=== PATIENT | male | born 1950 | race Caucasian/White ===

== ENCOUNTER 2017-12-12 07:43 | Emergency (ER) | payer MEDICARE, OTHER ==
[~2017-12-12] VITALS: Ht 182.9 cm; Wt 111.8 kg
[~2017-12-12 07:43] MED LIST: ATOR40TA PO; FENO135C2 PO; HYDR-3564 PO; NIFE60TA69 PO; SOLI5TAB2 PO; ZOLP12.543 PO
[2017-12-12] MEDS ORDERED: diltiazem 5mg/ml 5ml inj. IV ONE (08:10)
[2017-12-12 08:15] LABS: BASOPHILS # (AUTO) 0.1 X10'3 (0-0.2); BASOPHILS % (AUTO) 0.6 % (0-1); EOSINOPHILS # (AUTO) 0.1 X10'3 (0-0.9); EOSINOPHILS % (AUTO) 0.9 % (0-6); HEMATOCRIT 43.4 % (42.0-52.0); HEMOGLOBIN 14.5 g/dl (14.0-17.9); LYMPHOCYTES # (AUTO) 2.7 X10'3 (1.1-4.8); LYMPHOCYTES % (AUTO) 27.1 % (21-51); MEAN CORPUSCULAR HEMOGLOBIN 30.2 PG (27.0-31.0); MEAN CORPUSCULAR HGB CONC 33.3 % (33.0-36.5); MEAN CORPUSCULAR VOLUME 90.6 FL (78-98); MEAN PLATELET VOLUME 6.9 FL (7.4-10.4); MONOCYTES # (AUTO) 0.6 X10'3 (0-0.9); MONOCYTES % (AUTO) 5.7 % (2-12); NEUTROPHILS # (AUTO) 6.5 X10'3 (1.8-7.7); NEUTROPHILS % (AUTO) 65.7 % (42-75); PLATELET COUNT 319 X10'3 (140-440); RED BLOOD COUNT 4.79 X10'6 (4.70-6.10); RED CELL DISTRIBUTION WIDTH 14.4 % (11.5-14.5); WHITE BLOOD COUNT 9.9 X10'3 (4.5-11.0)
[2017-12-12 08:23] LABS: INR 1.1 INR; PARTIAL THROMBOPLASTIN TIME 28 SECONDS (22-32); PROTHROMBIN TIME 11.7 SECONDS (9.0-12.0)
[2017-12-12 08:30] LABS: ALANINE AMINOTRANSFERASE 36 U/L (12-78); ALBUMIN 4.2 G/DL (3.4-5.0); ALBUMIN/GLOBULIN RATIO 1.4 (1.1-1.5); ALKALINE PHOSPHATASE 23 IU/L (46-116); ANION GAP 8 (8-16); ASPARTATE AMINO TRANSFERASE 40 U/L (10-37); BILIRUBIN,TOTAL 0.8 MG/DL (0.1-1.0); BLOOD UREA NITROGEN 19 MG/DL (7-18); BUN/CREATININE RATIO 16.5 (5.4-32.0); CALCIUM 9.6 MG/DL (8.5-10.1); CHLORIDE 107 MMOL/L (99-107); CREATININE 1.15 MG/DL (0.60-1.10); GLUCOSE 112 MG/DL (70-104); POTASSIUM 3.8 MMOL/L (3.5-5.1); SODIUM 142 MMOL/L (135-145); TOTAL PROTEIN 7.3 G/DL (6.4-8.2); eGFR 63 ML/MIN
[2017-12-12] MEDS ORDERED: furosemide 10 MG/1 ML 10ml inj IV ONE (09:20)
[2017-12-12 11:53] VITALS: BP 132/88
== END 2017-12-12 11:56 | disposition home or self-care (01) ==
LOC: ER 07:44
DX: I48.91 Unspecified atrial fibrillation (principal); I10 Essential (primary) hypertension; Z88.5 Allergy status to narcotic agent; Z79.899 Other long term (current) drug therapy
CPT/HCPCS: 36415; 71045; 80053; 83880; 84484; 85025; 85610; 85730; 93005; 96374; 96375; 99285; J1940; J3490

== ENCOUNTER 2020-10-29 05:58 | Inpatient (IN) | payer MEDICARE, MEDICAID, OTHER ==
[2020-10-22 11:34] LABS: PRE OP INR 1.1 INR; PRE OP PROTIME 11.6 SECONDS (9.0-12.0)
[2020-10-22 11:46] LABS: ALBUMIN 3.9 G/DL (3.4-5.0); ALBUMIN/GLOBULIN RATIO 1.3 (1.1-1.5); ALKALINE PHOSPHATASE 26 IU/L (46-116); BLOOD UREA NITROGEN 15 MG/DL (7-18); CALCIUM 9.6 MG/DL (8.5-10.1); CHLORIDE 108 MMOL/L (99-107); CREATININE 1.15 MG/DL (0.60-1.10); PRE OP ALT 24 U/L (30-65); PRE OP ANION GAP 7 (8-16); PRE OP AST 18 U/L (10-37); PRE OP BILIRUB, TOTAL 0.4 MG/DL (0.0-1.0); PRE OP GLUCOSE 83 MG/DL (70-104); PRE OP POTASSIUM 4.1 MMOL/L (3.4-5.1); PRE OP SODIUM 145 MMOL/L (135-145); TOTAL CARBON DIOXIDE 29.9 MMOL/L (24-32); TOTAL PROTEIN 6.9 G/DL (6.4-8.2); eGFR 63 ML/MIN
[2020-10-22 11:49] LABS: BASOPHILS # (AUTO) 0.1 X10'3 (0-0.2); BASOPHILS % (AUTO) 1.1 % (0-1); EOSINOPHILS # (AUTO) 0.3 X10'3 (0-0.9); EOSINOPHILS % (AUTO) 2.7 % (0-6); LYMPHOCYTES # (AUTO) 5.2 X10'3 (1.1-4.8); LYMPHOCYTES % (AUTO) 49.9 % (21-51); MEAN CORPUSCULAR HEMOGLOBIN 30.8 PG (27.0-31.0); MEAN CORPUSCULAR HGB CONC 33.3 g/dL (33.0-36.5); MEAN CORPUSCULAR VOLUME 92.5 FL (78-98); MEAN PLATELET VOLUME 6.5 FL (7.4-10.4); MONOCYTES # (AUTO) 0.9 X10'3 (0-0.9); MONOCYTES % (AUTO) 8.6 % (2-12); NEUTROPHILS % (AUTO) 37.7 % (42-75); PRE OP HEMATOCRIT 41.5 % (42.0-52.0); PRE OP HEMOGLOBIN 13.8 g/dL (14.0-17.9); PRE OP PLATELET COUNT 336 X10'3 (140-440); RED BLOOD COUNT 4.48 X10'6 (4.70-6.10); RED CELL DISTRIBUTION WIDTH 13.8 % (11.5-14.5)
[~2020-10-29] VITALS: Ht 182.9 cm; Wt 104.3 kg
[2020-10-29] VITALS (18 sets, daily range): BP systolic 85–128; BP diastolic 47–93
[~2020-10-29 05:58] MED LIST changes: +ACET-1059 PO; +APIX5TAB3 PO; +DILT120C94 PO; +FLO0.4C PO; -HYDR-3564 PO; +LISI-604 PO; -NIFE60TA69 PO; -SOLI5TAB2 PO; -ZOLP12.543 PO; +ceFAZolin 2gm in dextrose, iso 50 ML IV ONE; +famotidine 20mg tablet PO ONE; +ringers solution, lacted 1,000 ML IV SCH; +tranexamic acid 1gm/0.7% sal. 100 ML IV ONE; +vancomycin 1,500 MG in NS 300ml IV soln IV ONE
[2020-10-29] MEDS ORDERED: LIDOcaine 1% (10mg/ml) 2ml vial ONE (06:13)
[2020-10-29] MEDS ORDERED: ROPIVAcaine 0.5% (5mg/ml) 30ml vial ONE ×2 (06:48→08:13)
[2020-10-29] MEDS ORDERED: midazolam 2 mg/2 ml injection ONE (08:10)
[2020-10-29] MEDS ORDERED: fentaNYL/PF 50MCG/1 ML 2ML syringe ONE (08:10)
[2020-10-29] MEDS ORDERED: sevoflurane 250ml liquid IH ONE (08:22)
[2020-10-29] MEDS ORDERED: dexamethasone sod phosphate 4mg/ml inj. ONE (09:05)
[2020-10-29] MEDS ORDERED: propofol inj 20 ML IV ONE (09:05)
[2020-10-29] MEDS ORDERED: neostigmine methylsulfate 1 MG/ML 10ml vial ONE (09:05)
[2020-10-29] MEDS ORDERED: ondansetron/PF 4mg/2ml inj ONE (09:05)
[2020-10-29] MEDS ORDERED: rocuronium 10mg/ml inj IV ONE (09:05)
[2020-10-29] MEDS ORDERED: LIDOcaine 1%/PF 5ML 10 MG/ML VIAL ONE (09:05)
[2020-10-29] MEDS ORDERED: glycopyrrolate 0.2mg/ml inj ONE (09:05)
[2020-10-29] MEDS ORDERED: ROPIVAcaine 0.2% (10 MG/5 ML) BOLUS INJECTION INTERSCALE PRN (09:15)
[2020-10-29] MEDS ORDERED: morphine 2 MG/ML inj. syringe IV PRN (09:15)
[2020-10-29] MEDS ORDERED: ROPIVAcaine 0.2%/PF PUMP/bolus 550 ML ADDCANAL SCH (09:15)
[2020-10-29] MEDS ORDERED: ondansetron/PF 4mg/2ml inj IV PRN ×2 (09:15→10:20)
[2020-10-29] MEDS ORDERED: ringers solution, lacted 1,000 ML IV SCH (09:15)
[2020-10-29] MEDS ORDERED: HYDROmorphone/PF 0.2 MG/ML SYRINGE IV PRN ×2 (09:15)
[2020-10-29] MEDS ORDERED: ROPIVAcaine 0.2%/PF PUMP/bolus 550 ML INTERSCALE SCH (09:16)
--- NOTE | 2020-10-29 10:18 | NUR ---
Received from OR via , accompanied by Anesthesiologist DR YARBROUGH and report given by Anesthesiolgist. AWAKENS TO VOICE. VITALS STABLE. DRESSING DI. LEONEL PAIN. LUE IN SLING. FINGERS WARM AND PINK.
[2020-10-29] MEDS ORDERED: ACETAMINOPHEN WITH CODEINE PO PRN (10:20)
[2020-10-29] MEDS ORDERED: bisacodyl 10mg suppository rectal RC PRN (10:20)
[2020-10-29] MEDS ORDERED: HYDROmorphone 1 mg/ml syringe IV PRN (10:20)
[2020-10-29] MEDS ORDERED: magnesium hydroxide 30ml (MOM) UD suspension PO PRN (10:20)
[2020-10-29] MEDS ORDERED: acetaminophen 325mg tablet PO PRN (10:20)
[2020-10-29] MEDS ORDERED: diphenhydrAMINE 25mg capsule PO PRN ×2 (10:20)
[2020-10-29] MEDS ORDERED: oxyCODONE IR 5mg (immed. release) tablet PO PRN (10:20)
[2020-10-29] MEDS ORDERED: HYDROmorphone inj. 0.5 MG/0.5 ML DISP.SYRIN IV PRN (10:20)
[2020-10-29] MEDS ORDERED: metoprolol tartrate 1mg/ml inj IV ONE (10:27)
[2020-10-29] MEDS ORDERED: esmolol inj. 10 ML IV ONE (10:27)
--- NOTE | 2020-10-29 11:28 | NUR ---
Report called to receiving nurse. Transferred via BED Belongings . Special Issues communicated to receiving nurse. AWAKE AND ORIENTED. VITALS STABLE. DRESSING DI. STATES ONLY MIN DISCOMFORT. TO ORTHO RM 4024A AT THIS TIME.
[2020-10-29] MEDS ORDERED: tranexamic acid 1gm/0.7% sal. 100 ML IV ONE (14:00)
[2020-10-29] MEDS: acetaminophen 325mg tablet PO SCH ×2 (14:00→20:14)
[2020-10-29] MEDS: oxyCODONE IR 5mg (immed. release) tablet PO PRN (14:22)
[2020-10-29] MEDS: ceFAZolin/D5W- 1GM premix 50 ML IV SCH (15:49)
[2020-10-29] MEDS: potassium cl 20mEq in 1/2 NS 1,000 ML IV SCH ×2 (18:20→20:13)
--- NOTE | 2020-10-29 18:25 | NUR ---
Problems reprioritized. Patient report given, questions answered & plan of care reviewed with Oneyda.
--- NOTE | 2020-10-29 18:26 | NUR ---
RECEIVED REPORT FROM MARKELL CISNEROS AND ASSUMED PATIENT CARE
[2020-10-29] MEDS ORDERED: vancomycin/NS 1 GM ADD-VANTAGE 250 ML IV SCH (20:00)
[2020-10-29] MEDS: tamsulosin 0.4mg capsule PO SCH (20:14)
[2020-10-29] MEDS: apixaban 5mg tablet PO SCH (20:14)
[2020-10-29] MEDS ORDERED: sennosides 8.6mg tablet PO SCH (21:00)
[2020-10-30] MEDS: oxyCODONE IR 5mg (immed. release) tablet PO PRN (00:24)
[2020-10-30] MEDS: ceFAZolin/D5W- 1GM premix 50 ML IV SCH (00:28)
[2020-10-30 02:00] VITALS: BP 141/87
[2020-10-30] MEDS: acetaminophen 325mg tablet PO SCH ×2 (02:00→07:35)
[2020-10-30] MEDS: potassium cl 20mEq in 1/2 NS 1,000 ML IV SCH (02:20)
[2020-10-30 06:00] VITALS: BP 144/88
[2020-10-30 06:26] LABS: BASOPHILS % (AUTO) 0.2 % (0-1); EOSINOPHILS % (AUTO) 0 % (0-6); HEMATOCRIT 36.3 % (42.0-52.0); HEMOGLOBIN 12.2 g/dl (14.0-17.9); LYMPHOCYTES # (AUTO) 4.3 X10'3 (1.1-4.8); LYMPHOCYTES % (AUTO) 25.3 % (21-51); MEAN CORPUSCULAR HEMOGLOBIN 31.2 PG (27.0-31.0); MEAN CORPUSCULAR HGB CONC 33.6 g/dL (33.0-36.5); MEAN PLATELET VOLUME 6.4 FL (7.4-10.4); MONOCYTES # (AUTO) 1.2 X10'3 (0-0.9); MONOCYTES % (AUTO) 6.9 % (2-12); NEUTROPHILS # (AUTO) 11.6 X10'3 (1.8-7.7); NEUTROPHILS % (AUTO) 67.6 % (42-75); PLATELET COUNT 295 X10'3 (140-440); RED BLOOD COUNT 3.91 X10'6 (4.70-6.10); RED CELL DISTRIBUTION WIDTH 13.8 % (11.5-14.5); WHITE BLOOD COUNT 17.1 X10'3 (4.5-11.0)
[2020-10-30 06:34] LABS: ANION GAP 9 (8-16); CHLORIDE 107 MMOL/L (99-107); POTASSIUM 3.7 MMOL/L (3.5-5.1); SODIUM 142 MMOL/L (135-145)
[2020-10-30] MEDS: apixaban 5mg tablet PO SCH (07:35)
[2020-10-30] MEDS: tamsulosin 0.4mg capsule PO SCH (07:35)
[2020-10-30] MEDS ORDERED: diltiazem CD 120mg capsule (once-daily) PO SCH (08:00)
[2020-10-30] MEDS ORDERED: fenofibrate 145mg tablet PO SCH (08:00)
[2020-10-30] MEDS ORDERED: atorvastatin 20mg tablet PO SCH (08:00)
[2020-10-30] MEDS ORDERED: lisinopril 5mg tablet PO SCH (08:00)
[2020-10-30] MEDS ORDERED: aspirin 325mg tablet PO SCH (08:30)
[2020-10-30 10:00] VITALS: BP 117/69
[2020-10-30] MEDS ORDERED: pneumococcal 23-VAL P-sac vacc 25 mcg/0.5ml vial IMVAC ONE (10:00)
--- NOTE | 2020-10-30 12:00 | NUR ---
Patient stable for discharge home today. All DC instructions given and questions answered. IV removed with canula intact.
[2020-10-31] MEDS ORDERED: acetaminophen 325mg tablet PO PRN (10:20)
== END 2020-10-30 12:57 | disposition home or self-care (01) | DRG 483 ==
LOC: PAS IN 05:58 → UNDOADMIN 05:58 → EDSTATUS 08:45 → PAS IN 10:16 → ORTHO 4S 11:40
PROVIDERS: ADMIT Orthopaedic Surgery; ATTEND Orthopaedic Surgery
PROC: 0LM20ZZ Reattachment of Left Shoulder Tendon, Open Approach (ICD-10-PCS; 2020-10-29)
PROC: 0RRK00Z Replacement of Left Shoulder Joint with Reverse Ball and Socket Synthetic Substitute, Open Approach (ICD-10-PCS; principal; 2020-10-29 08:27)
DX: M19.012 Primary osteoarthritis, left shoulder (principal); M75.122 Complete rotator cuff tear or rupture of left shoulder, not specified as traumatic; E78.5 Hyperlipidemia, unspecified; I10 Essential (primary) hypertension; D64.89 Other specified anemias
CPT/HCPCS: 36415; 80051; 80053; 82948; 85025; 85610; 85730; 87081; 87635; 90732; 97161; 97530; A4565; A4618; A7000; C1776; G0378; J0690; J1100; J2001; J2250; J2270; J2405; J2704; J2710; J2795; J3010; J3370; J3480; J3490; J7040; J7120

== ENCOUNTER 2025-07-24 11:21 | Day surgery (SDC) | payer MEDICARE, OTHER ==
[2025-07-20 12:04] LABS: RED CELL DISTRIBUTION WIDTH 14.2 % (11.5-14.5)
[2025-07-20 12:05] LABS: MEAN PLATELET VOLUME 7.1 FL (7.4-10.4)
[2025-07-20 12:27] LABS: APTT 26 SECONDS (22-32); INR 1.2 INR
[2025-07-20 12:28] LABS: CHOL/HDL RATIO 4.7 (0.00-4.99); CREATININE 1.11 MG/DL (0.60-1.10); LDL CHOLESTEROL 120 MG/DL (50-100); TOTAL CARBON DIOXIDE 30.3 MMOL/L (24-32); eGFR 65 ML/MIN
[2025-07-20 12:45] LABS: EOSINOPHILS % (MANUAL) 1.0 % (0-6); LYMPHOCYTES % (MANUAL) 63.0 % (21-51); MONOCYTES % (MANUAL) 8.0 % (2-12); NEUTROPHILS % (MANUAL) 25.0 % (42-75); REACTIVE LYMPHOCYTES % 3.0 % (0-0)
[2025-07-20 12:46] LABS: PLATELET ESTIMATE NORMAL
[~2025-07-24] VITALS: Ht 182.9 cm; Wt 111.3 kg
[2025-07-24] VITALS (8 sets, daily range): BP systolic 105–143; BP diastolic 69–100; PULSE 64–94; RESP 14–16; TEMP 98.2; O2SAT 93–98
[~2025-07-24 11:21] MED LIST changes: +ATOR40TA72 PO; +CHOL100025 PO; -LISI-604 PO; +LISI5TAB22 PO; +METO-411 PO; +MULT-1085 PO; +TRAZ150T78 PO; -ceFAZolin 2gm in dextrose, iso 50 ML IV ONE; -famotidine 20mg tablet PO ONE; -ringers solution, lacted 1,000 ML IV SCH; -tranexamic acid 1gm/0.7% sal. 100 ML IV ONE; -vancomycin 1,500 MG in NS 300ml IV soln IV ONE
--- NOTE | 2025-07-24 11:56 | ELECTROCARDIOGRAPH REPORT ---
[facility] Test Date: 2025-07-24 Test Time: 11:54:16 Pat Name: MARIAELENA LEA Department: [facility] Patient ID: [id number] Room: Gender: M Clinical Studies Specialist: BAKARI : 1950 Requested By: SHERLYN VALENZUELA Order Number: [id number] Reading MD: Dr. ROSSY Muñiz Measurements Intervals Rosalie Rate: 99 P: 0 IA: 0 QRS: 93 QRSD: 121 T: 53 QT: 411 QTc: 528 Interpretive Statements Atrial fibrillation RBBB and LPFB Abnormal inferior Q waves Electronically Signed On 07-24-2025 17:19:[address] ROSSY Muñiz Please click the below link to view image of tracing.
[2025-07-24] MEDS ORDERED: verapamil 2.5 mg/ml inj IV ONE (14:29)
[2025-07-24] MEDS ORDERED: fentaNYL/PF 50MCG/1 ML 2ML syringe ONE (14:29)
[2025-07-24] MEDS ORDERED: midazolam 1 mg/ML 2ml injection ONE ×2 (14:29→15:13)
[2025-07-24] MEDS ORDERED: LIDOcaine 1% (10mg/ml) 2ml vial ONE (14:29)
[2025-07-24] MEDS ORDERED: heparin 1,000unit/ml 10ml vial 10 ML ONE (14:29)
[2025-07-24] MEDS ORDERED: nitroGLYCERIN 500mcg/5mL D5W 5 ML IV ONE (14:30)
[2025-07-24] MEDS ORDERED: iohexol 350 MG/ML 50ML vial IV ONE ×2 (15:25→15:34)
[2025-07-24] MEDS ORDERED: heparin 1,000 UNITS/NS 500ml 500 ML ONE (15:38)
[2025-07-24] MEDS ORDERED: HYDROcodone/acetaminophen 5mg/325mg tablet PO PRN (17:15)
[2025-07-24] MEDS ORDERED: OXAZEpam 15mg capsule PO PRN (17:15)
[2025-07-24] MEDS ORDERED: ondansetron/PF 4mg/2ml inj IV PRN (17:15)
[2025-07-24] MEDS ORDERED: HYDROcodone/acetaminophen 10/325mg tab PO PRN (17:15)
--- NOTE | 2025-07-29 18:34 | CARDIOLOGY REPORT ---
DATE OF SERVICE: 07/24/2025 DICTATING PHYSICIAN: Danielle Lombardi MD DATE OF CARDIAC CATHETERIZATION: 07/24/2025 PROCEDURES: * Left heart catheterization. * Selective coronary angiography. * Nonselective right coronary artery angiography. * Aortic root angiography. * Conscious sedation monitoring time for 45 minutes. INDICATION: Abnormal stress test. PHYSICIAN: Danielle Lombardi MD DESCRIPTION OF PROCEDURE: After informed consent was obtained, the patient was brought to the lab, where he was prepped and draped in the usual sterile fashion. A 6-[place] sheath was inserted into the right radial artery. Thereafter, using a TIG catheter, selective coronary angiography of the left system was obtained. The catheter was also manipulated to engage the left ventricle, where left ventricular end-diastolic pressure was obtained. Next, because of tremendous difficulty engaging the right coronary artery, aortic root angiography was performed. Multiple catheters were used in an attempt to engage the right coronary artery. Nonselective angiography of the right coronary artery was then performed. HEMODYNAMICS: For the patient's hemodynamics, please refer to the event log. Left ventricular end diastolic pressure was 16 mmHg. FINDINGS: The left main coronary artery is a normal-caliber vessel with mild luminal irregularities. The left anterior descending coronary artery is also a medium-caliber vessel with mild luminal irregularities. The circumflex coronary artery is a medium-caliber dominant vessel with 20%-30% mid vessel stenosis. The right coronary artery was difficult to engage. Nonselective angiography revealed mild 30% stenosis of the mid right coronary artery. IMPRESSION: * Mild luminal irregularities of the coronary arteries. * Difficulty was encountered engaging the right coronary artery. * Nonselective angiography revealed a 30% mid vessel stenosis. * Left ventricular end diastolic pressure was 16 mmHg. Danielle Lombardi MD TID: [id number] RECEIPT: [id number] GABRIELLA/JT
== END 2025-07-24 17:55 | disposition home or self-care (01) ==
LOC: SSTAY O 11:21
PROVIDERS: ATTEND Student in an Organized Health Care Education/Training Program
DX: R94.39 Abnormal result of other cardiovascular function study (principal); I25.10 Atherosclerotic heart disease of native coronary artery without angina pectoris; I48.91 Unspecified atrial fibrillation; I45.2 Bifascicular block; R94.31 Abnormal electrocardiogram [ECG] [EKG]; I11.0 Hypertensive heart disease with heart failure; I50.9 Heart failure, unspecified; E78.00 Pure hypercholesterolemia, unspecified; E03.9 Hypothyroidism, unspecified; K21.9 Gastro-esophageal reflux disease without esophagitis; I42.9 Cardiomyopathy, unspecified; Z79.01 Long term (current) use of anticoagulants; Z79.899 Other long term (current) drug therapy; Z88.8 Allergy status to other drugs, medicaments and biological substances
CPT/HCPCS: 36415; 80048; 80061; 83695; 85025; 85610; 85730; 93005; 93458; 93567; 99152; 99153; A6258; A6402; C1894; J1644; J2003; J2250; J3010; J3490; J7030; Q0163; Q9967; Z7610; 85007; 93454